=== PATIENT | male | born 1990 | race African-American/Black ===

== ENCOUNTER 2021-04-28 17:36 | Emergency (ER) | payer SELFPAY ==
[2021-04-29 15:24] LABS: SARS-CoV-2 PCR by NAA Not Detected (NotDetected)
== END 2021-04-28 19:35 | disposition home or self-care (01) ==
LOC: CSHERS 17:36
DX: R50.9 Fever, unspecified (principal); R05.9 Cough, unspecified; M79.10 Myalgia, unspecified site; Z20.822 Contact with and (suspected) exposure to COVID-19; F17.210 Nicotine dependence, cigarettes, uncomplicated
CPT/HCPCS: 87804; 99283; U0003; U0005

== ENCOUNTER 2021-12-26 12:17 | Emergency (ER) | payer SELFPAY ==
[2021-12-26 15:23] LABS: Bilirubin Neg (Negative); Blood, Urine Negative (Negative); Clarity Clear (Clear); Glucose, Urine (Dipstick) Normal (Negative); Ketone, Urine Negative (Negative); Leukocyte Negative (Negative); Nitrite Negative (Negative); Protein, Urine (Dipstick) 15 mg/dl (Neg-Trace); Specific Gravity, Urine 1.015 (1.005-1.030); Urobilinogen Normal mg/dL (Less than 2)
[2021-12-26 16:40] LABS: #Basophils 0.1 10x3/uL (0.0-0.2); #Eosinphils 0.1 10x3/uL (0.0-0.5); #Monocytes 0.9 10x3/uL (0.0-1.1); #Neutrophils 4.6 10x3/uL (1.5-8.4); %Basophils 0.8 % (0.0-2.0); %Eosinophils 1.6 % (0.0-6.0); %Monocytes 12.1 % (0.0-10.0); %Neutrophils 61.2 % (40.0-75.0); Hemoglobin 12.9 g/dL (13.5-17.5); Mean Corpuscular HGB CONC 33.2 g/dL (32.0-36.0); Mean Corpuscular Hemoglobin 28.5 pg (27.0-33.0); Mean Corpuscular Volume 85.7 fl (81.2-95.1); Mean Platelet Volume 10.1 fl (7.4-10.4); Platelet Count 274 10x3/uL (150-450); RBC Distribution Width 13.3 % (11.5-14.5); Red Blood Cell (RBC) Count 4.53 10x6/uL (4.32-5.72); White Blood Cell (WBC) Count 7.5 10x3/uL (3.5-10.5)
[2021-12-26 16:51] LABS: Anion Gap 12 mmol/L (10-20); BUN (Urea Nitrogen) 14 mg/dL (8.9-20.6); Calc. Creatinine Clearance 0 mL/min (70-130); Calcium 8.9 mg/dL (7.8-10.44); Carbon Dioxide 26 mmol/L (22-29); Chloride 107 mmol/L (98-107); Estimated GFR 98; Glucose 82 mg/dL (70-105); Potassium 3.8 mmol/L (3.5-5.1)
[2021-12-26 17:12] LABS: Sodium 141 mmol/L (136-145)
[2021-12-26] MEDS ORDERED: Lidocaine 1% (PF) 30 ML VIAL ONE (17:19)
== END 2021-12-26 18:27 | disposition home or self-care (01) ==
LOC: CSHERS 12:17
DX: L02.214 Cutaneous abscess of groin (principal); F17.210 Nicotine dependence, cigarettes, uncomplicated
CPT/HCPCS: 10060; 76870; 80048; 81003; 83605; 85025; 93976; J2001

== ENCOUNTER 2023-12-25 16:26 | Emergency (ER) | payer SELFPAY | END 2023-12-25 17:19 | disposition home or self-care (01) | LOC: CSHERS 16:26 | DX: H00.024 Hordeolum internum left upper eyelid (principal); F17.210 Nicotine dependence, cigarettes, uncomplicated | CPT/HCPCS: 99283 ==